=== PATIENT | male | born 1990 | race Two or more races ===

== ENCOUNTER 2017-06-11 21:01 | Emergency (ER) | payer SELFPAY ==
[~2017-06-11] VITALS: Ht 172.7 cm; Wt 86.2 kg
[2017-06-11 21:10] VITALS: BP 150/104
== END 2017-06-12 04:03 | disposition home or self-care (01) ==
LOC: ER 21:01
DX: J02.9 Acute pharyngitis, unspecified (principal); R51 Headache
CPT/HCPCS: 70450; 70490; 71045